=== PATIENT | male | born 2000 | race Caucasian/White ===

== ENCOUNTER 2018-02-15 11:05 | Emergency (ER) | payer SELFPAY ==
[2018-02-15] MEDS ORDERED: Lidocaine 1% 20 ML MDV ONE (11:18)
[2018-02-15] MEDS ORDERED: Bacitracin Zinc 1 Packet ONE (11:50)
== END 2018-02-15 11:56 | disposition home or self-care (01) ==
LOC: SCSER 11:05
DX: S81.812A Laceration without foreign body, left lower leg, initial encounter (principal); W24.0XXA Contact with lifting devices, not elsewhere classified, initial encounter; Y92.89 Other specified places as the place of occurrence of the external cause
CPT/HCPCS: 12001; J2001